=== PATIENT | female | born 1995 | race Caucasian/White ===

== ENCOUNTER 2023-08-10 04:11 | Outpatient (CLI) | payer OTHER ==
[~2023-08-10] VITALS: Ht 172.7 cm; Wt 77.0 kg
--- NOTE | 2023-08-10 04:15 | NUR ---
PATIENT AMBULATORY TO UNIT WITH SPOUSE. STATING HER CONTRACTIONS ARE EVERY 10 MINUTES. DENIES LEAKING OF FLUID OR VAGINAL BLEEDING. PATIENT STATES "NOTHING HAS HELPED HER CONTRACTIONS GO AWAY AND ARE STARTING TO GET CLOSER TOGETHER."
[2023-08-10] MEDS ORDERED: LR 1,000 ML IV PRN (04:30)
[2023-08-10] MEDS ORDERED: Terbutaline 1 MG/ML 1 ML AMP SQ ONE (04:30)
[2023-08-10] MEDS ORDERED: PRENATAL TABLET PO (05:03)
[2023-08-10] MEDS ORDERED: PROZAC 10MG10 MG PO (05:04)
[2023-08-10] MEDS ORDERED: ASPIRIN 81M81 MG/TA2 PO (05:04)
[2023-08-10 05:15] VITALS: BP 103/56; PULSE 74; TEMP 98.1
--- NOTE | 2023-08-10 05:25 | NUR ---
PATIENT EDUCATED ON STAYING WELL HYDRATED, KEEPING SCHEDULED APPOINTMENTS AND DISCHARGE INSTRUCTIONS. PATIENT VERBALIZES UNDERSTANDING. QUESTIONS INVITED AND ANSWERED. PATIENT AND SPOUSE AMBULATORY OFF UNIT
== END 2023-08-10 05:25 ==
LOC: LDRO 04:11 → LDR 04:19 → LDRO 05:25
DX: O47.9 False labor, unspecified (principal); Z3A.00 Weeks of gestation of pregnancy not specified
CPT/HCPCS: OP; J7120

== ENCOUNTER 2023-09-20 01:29 | Inpatient (IN) | payer OTHER ==
[2023-09-20] VITALS (35 sets, daily range): BP systolic 88–124; BP diastolic 49–75; PULSE 65–90; TEMP 98–98.4
[~2023-09-20] VITALS: Ht 175.3 cm; Wt 82.5 kg
[~2023-09-20 01:29] MED LIST: ASPIRIN 81M81 MG/TA2 PO; PRENATAL TABLET PO; PROZAC 10MG10 MG PO
--- NOTE | 2023-09-20 01:34 | NUR ---
PT TO LR4 VIA WHEELCHAIR. PT'S SPOUSE IS AT HER SIDE. THE PATIENT STATES SHE IS HAVING CONTRACTIONS 3 MINUTES APART. DENIES LOF/VG AND HAS GOOD MOVEMENT. THE PATIENT VOIDED AND THEN CHANGED INTO A CLEAN GOWN AND THEN WAS PLACED ON EFM. SVE AT 0138 IS 2/80/-3. THE PATIENT STATES THAT SHE IS NOT TOLERATING CONTRACTIONS VERY WELL AND IS HOPING TO GET AN EPIDURAL SOON POSSIBLE. HEART TONES CATEGORY 1 TRACING WITH CONTRACTIONS EVERY 4 MINUTES.
[2023-09-20] MEDS ORDERED: ATARAX 25MG25 MG/TAB PO (02:01)
[2023-09-20] MEDS ORDERED: PROTONIX20 MG PO (02:01)
[2023-09-20] MEDS ORDERED: PROZAC 20MG20 MG PO (02:03)
[2023-09-20] MEDS ORDERED: LR & Oxytocin 500 ML IV SCH (03:15)
[2023-09-20] MEDS ORDERED: LR 1,000 ML IV SCH (03:15)
[2023-09-20] MEDS ORDERED: Penicillin G Potassium 5,000,000 UNITS in NS 100 ML IV ONE (03:30)
[2023-09-20] MEDS ORDERED: ROPivacaine PF 0.2% 200 ML IV ONE (03:59)
--- NOTE | 2023-09-20 04:13 | NUR ---
THE PATIENT IS SITTING UP AT THE BEDSIDE. MEGHAN ROQUE HERE FOR EPIDURAL PLACEMENT. 0402: JUDE ARRIVED TO ROOM. 0412: TEST DOSE ADMINISTERED PER MEGHAN ROQUE. THE PATIENT TOLERATED THE PROCEDURE VERY WELL. MEGHAN ROQUE SECURING THE EPIDURAL, AND PT REPOSITIONED TO WEDGE LEFT.
[2023-09-20 04:19] LABS: BASO % 0.2 % (0.0-2.0); EOS # 0.3 K/mm3 (0.0-0.7); EOS % 2.3 % (0.0-4.0); GRAN # 10.6 K/mm3 (1.4-6.5); GRAN % 77.1 % (42.2-75.2); HEMOGLOBIN 12.3 g/dl (12.5-16.0); LYMPH # 1.9 K/mm3 (1.2-3.4); LYMPH % 13.6 % (20.0-51.0); MEAN CELL VOLUME 92 fl (80.0-100.0); MEAN CORPUSCULAR HEMOGLOBIN 32 pg (27-31); MEAN CORPUSCULAR HGB CONC 35 g/dl (33.0-37.0); MEAN PLATELET VOLUME 13.3 fl (7.4-10.4); MONO # 0.9 K/mm3 (0.1-0.6); MONO % 6.3 % (1.7-9.3); PLATELET COUNT 157 K/mm3 (130-400); RED BLOOD COUNT 3.89 M/mm3 (4.10-5.30); REDCELL DISTRIBUTION WIDTH-CV 13.6 % (11.5-14.5)
[2023-09-20 04:20] LABS: HEMATOCRIT 35.6 % (37.0-47.0)
[2023-09-20] MEDS ORDERED: Ondansetron 4 MG/2 ML VIAL IV PRN (04:45)
[2023-09-20] MEDS ORDERED: ePHEDrine 50 MG/10 ML VIAL IV PRN (04:45)
[2023-09-20] MEDS ORDERED: diphenhydrAMINE 50 MG/ML 1 ML VIAL IV PRN (04:45)
[2023-09-20] MEDS ORDERED: Naloxone 0.4 MG/ML VIAL IV PRN ×2 (04:45→13:15)
[2023-09-20] MEDS ORDERED: diphenhydrAMINE 25 MG CAP PO PRN (04:45)
--- NOTE | 2023-09-20 06:15 | NUR ---
PATIENT CARE RECEIVED FROM ELIAS CLINTON RN.
--- NOTE | 2023-09-20 06:35 | NUR ---
PATIENT BLOOD PRESSURE DECREASE. FLUID BOLUS INITIATED. PATIENT POSITINO CHANGED FROM WEDGE LEFT TO WEDGE RIGHT. BLOOD PRESSURE IMPROVED.
[2023-09-20] MEDS ORDERED: Penicillin G Potassium 2,500,000 UNITS in NS 100 ML IV SCH (07:30)
--- NOTE | 2023-09-20 08:25 | NUR ---
Pt reports feeling pressure. SVE done by this RN /+1 and SROM noted at this time.
--- NOTE | 2023-09-20 09:03 | NUR ---
0825 PATIENT DETERMINED TO BE COMPLETE. PROVIDER NOTIFIED 0832 AT BEDSIDE. PATIENT SETUP FOR DELIVERY. 0840.PUSHING INITIATED. WITH FIRST PUSH MEC STIANED FLUID. 0903 OF VIABLE MALE INFANT. PLACED ON MOTHER'S ABDOMEN. CARE OF INFANT GIVEN TO NURSERY RN. 0909 OF PLACENTA. PITOCIN BOLUS INITIATED AT 333ML/HR PER POLICY AND PROTOCOL. REPAIR OF 2ND DEGREE LACERATION. FUNDUS FIRM AND BLEEDING WNL.
[2023-09-20] MEDS ORDERED: Loratadine 10 MG TAB PO PRN (09:30)
[2023-09-20] MEDS ORDERED: Magnes Hydrox (MOM) 80 MG/ML 30 ML CUP PO PRN (09:30)
--- NOTE | 2023-09-20 11:45 | NUR ---
PATIENT UP TO BATHROOM USING JOHN-STEADY. PATIENT ABLE TO VOID. PERICARE COMPLETED. LABIA SWOLLEN. WITCH FAVIAN PADS APPLIED. PATIENT TRANSPORTED TO NURSERY TO BE WITH . PATIENT'S BELONGINGS TAKEN TO ROOM.
[2023-09-20] MEDS ORDERED: Ibuprofen 600 MG TAB PO SCH (13:15)
[2023-09-20] MEDS ORDERED: Measles/Mumps/Rubella Virus Vaccine Live w Diluent 0.5 ML VIAL SQ SCH (13:15)
[2023-09-20] MEDS ORDERED: Acetaminophen 500 MG TAB PO PRN (13:15)
[2023-09-20] MEDS ORDERED: Phenylephrine/Mineral Oil/Petrolatum 57 GM TUBE RC PRN (13:15)
[2023-09-20] MEDS ORDERED: Witch Hazel 50% Pads Bulk TUB TP PRN (13:15)
[2023-09-20] MEDS ORDERED: oxyCODONE 5 MG TAB PO PRN (13:15)
[2023-09-20] MEDS ORDERED: Mag/Al Hydrox/Simeth Susp 30 ML CUP PO PRN (13:15)
[2023-09-20] MEDS ORDERED: Sennosides/Docusate 8.6-50 MG TAB PO SCH (17:00)
[2023-09-20] MEDS ORDERED: traZODone 50 MG TAB PO PRN (21:00)
[2023-09-21 08:10] VITALS: BP 112/58; PULSE 79; TEMP 97.6
[2023-09-21] MEDS ORDERED: IBU600 MG PO (08:56)
[2023-09-21] MEDS ORDERED: ROXICODONE 55 MG/TAB PO (08:56)
[2023-09-21] MEDS ORDERED: FLUoxetine 20 MG CAP PO SCH (09:00)
[2023-09-21] MEDS ORDERED: Prenatal Vitamins/Iron/FA TAB PO SCH (09:00)
[2023-09-21 17:32] VITALS: BP 102/63; PULSE 72; TEMP 98.2
[2023-09-21 19:20] VITALS: BP 110/68; PULSE 81; TEMP 98.5
[2023-09-22 08:00] VITALS: BP 104/61; PULSE 82; TEMP 97.9
== END 2023-09-22 10:00 | disposition home or self-care (01) | DRG 807 ==
LOC: LDRO 01:29 → OB 03:02 → LDR 03:02 → OB 17:32
PROVIDERS: Obstetrics & Gynecology; ADMIT Student in an Organized Health Care Education/Training Program
PROC: 10E0XZZ Delivery of Products of Conception, External Approach (ICD-10-PCS; principal; 2023-09-20)
PROC: 0KQM0ZZ Repair Perineum Muscle, Open Approach (ICD-10-PCS; 2023-09-20)
DX: O99.824 Streptococcus B carrier state complicating childbirth (principal); Z37.0 Single live birth; Z3A.38 38 weeks gestation of pregnancy; O99.62 Diseases of the digestive system complicating childbirth; K21.9 Gastro-esophageal reflux disease without esophagitis; O99.344 Other mental disorders complicating childbirth; F41.9 Anxiety disorder, unspecified; O77.0 Labor and delivery complicated by meconium in amniotic fluid; O70.1 Second degree perineal laceration during delivery; Z86.16 Personal history of COVID-19
CPT/HCPCS: J2405; J2540; J2590; J2795; J7120